=== PATIENT | female | born 1960 | race American Indian/Alaskan Native ===

== ENCOUNTER 2020-09-10 09:49 | Outpatient (CLI) | payer OTHER ==
--- NOTE | 2020-09-10 13:10 | XRay Report ---
LUMBAR SPINE 3 VIEWS INDICATION / CLINICAL INFORMATION: BACK PAIN. COMPARISON: None available. FINDINGS: Diffuse osteopenia. Mild anterolisthesis of L4 on L5. No other significant skeletal abnormality Signer Name: George Ac MD FACR Signed: 09/10/2020 12:26 PM Workstation Name: [email or web address]
--- NOTE | 2020-09-10 13:23 | XRay Report ---
STANDING BILATERAL KNEES 3 VIEWS INDICATION / CLINICAL INFORMATION: BILATERAL KNEE PAIN. COMPARISON: None available. FINDINGS: Moderately advanced joint space narrowing medially in both knees. No other significant skeletal abnor mality Signer Name: George Ac MD FACR Signed: 09/10/2020 12:25 PM Workstation Name: [email or web address]
== END 2020-09-10 09:50 | disposition home or self-care (01) ==
LOC: XRAY 09:49
PROVIDERS: ATTEND Internal Medicine
DX: M17.0 Bilateral primary osteoarthritis of knee (principal); M47.816 Spondylosis without myelopathy or radiculopathy, lumbar region; M85.88 Other specified disorders of bone density and structure, other site
CPT/HCPCS: 72100; 73565